=== PATIENT | male | born 1995 | race Asian ===

== ENCOUNTER 2021-07-08 18:56 | Emergency (ER) | payer OTHER ==
[~2021-07-08] VITALS: Ht 175.3 cm; Wt 90.0 kg
[2021-07-08 22:45] VITALS: BP 131/69
== END 2021-07-08 22:46 | disposition home or self-care (01) ==
LOC: M ED 18:56
DX: T65.891A Toxic effect of other specified substances, accidental (unintentional), initial encounter (principal); T54.91XA Toxic effect of unspecified corrosive substance, accidental (unintentional), initial encounter; Y92.89 Other specified places as the place of occurrence of the external cause; Y93.E5 Activity, floor mopping and cleaning; Y99.8 Other external cause status